=== PATIENT | female | born 1945 | race Caucasian/White ===

== ENCOUNTER → 2019-02-19 16:58 | Outpatient (CLI) | payer MEDICARE, BC ==
[2010-08-30 07:20] VITALS: BMI 45.6
== END | disposition home or self-care (01) ==
LOC: D.MAMMO 14:15
PROVIDERS: ATTEND Internal Medicine
DX: Z12.31 Encounter for screening mammogram for malignant neoplasm of breast (principal)

== ENCOUNTER 2019-09-30 12:29 | Day surgery (SDC) | payer MEDICARE, BC ==
[~2019-09-30] VITALS: Ht 162.6 cm; Wt 121.4 kg
[2019-09-30 13:13] LABS: HEMATOCRIT 44.3 % (36.0-48.0); HEMOGLOBIN 14.4 g/dL (12-16); MCH 29.4 pg (26.0-34.0); MCHC 32.5 g/dL (31.0-37.0); MCV 90.6 fL (80.0-100.0); MEAN PLATELET VOLUME 10.5 fL (7.4-10.4); RBC 4.89 10x6/uL (4.00-5.40); RDW 13.7 % (11.5-14.5); WBC 6.8 10x3/uL (4.8-10.8)
[2019-09-30 13:34] LABS: CALC OSMOLALITY 283 mosm/kg (275-300); CALCIUM 9.3 mg/dL (8.5-10.1); CARBON DIOXIDE 28.4 mmol/L (21.0-32.0); CHLORIDE - SERUM 104 mmol/L (98-107); CREATININE - SERUM 0.6 mg/dL (0.6-1.3); GLUCOSE 106 mg/dL (74-106); POTASSIUM - SERUM 4.1 mmol/L (3.5-5.1); SODIUM 143 mmol/L (136-145); UREA NITROGEN 11 mg/dL (7-18); eGFR NON AFRICAN AMERICAN > 90 mL/min (90-120)
[2019-09-30 13:42] LABS: APTT 30.9 SECONDS (22.8-39.4); INR 1.08 (0.85-1.17); PROTIME 13.5 SECONDS (11.6-15.0)
[2019-09-30] MEDS ORDERED: BISOPROLOL-HCT1 EACH PO (13:57)
[2019-09-30] MEDS ORDERED: FUROSEMIDE20 MG PO (13:57)
[2019-09-30] MEDS ORDERED: PLAVIX75 MG PO (13:58)
[2019-09-30] MEDS ORDERED: KLOR-CON 1010 MEQ PO (13:59)
[2019-09-30 14:07] VITALS: BP 119/65; Ht 162.6 cm; Wt 121.4 kg
--- NOTE | 2019-09-30 17:10 | NUR ---
PT DC INSTRUCTIONS REVIEWED AT THIS TIME, PT VERBALIZES UNDERSTANDING. PT IV REMOVED AT THIS TIME, INTACT, NO REDNESS OR SWELLING NOTED AT SITE.
--- NOTE | 2019-09-30 17:18 | NUR ---
PT LEFT UNIT VIA WC AT 1715
--- NOTE | 2019-10-01 07:49 | OP ---
PATIENT NAME: RAZ EHLTON MEDICAL RECORD: [id number] :49 LOCATION:D.OPS ADMISSION DATE: SURGEON: JANESSA LOCKETT DO DATE OF OPERATION: 09/30/2019 PROCEDURE: Colonoscopy with polypectomy. INDICATIONS FOR PROCEDURE: History of colon polyps, diverticulosis of colon and abnormal findings on CT scan, history of C. difficile, status post treatment in May of 2019. SCOPE: Olympus video pediatric colonoscope. MEDICATIONS: Propofol 650 mg IV per anesthesia. WITHDRAWAL TIME: 32 minutes. ESTIMATED BLOOD LOSS: Minimal. COMPLICATIONS: None immediate. FINDINGS: Informed consent was given. The patient was made comfortable with the above medication. After reaching an adequate level of sedation by slow IV push, the patient was placed on her left side. A digital rectal examination was performed and was normal. The endoscope was advanced under direct visualization through the rectum to the cecum, confirmed by the presence of the appendiceal orifice and ileocecal valve. The endoscope was slowly withdrawn. Mucosa was carefully examined. Prep quality was fair. There were 3 polyps visualized on today's examination. The first was a benign-appearing flat polyp consistent with a sessile serrated adenoma in the ascending colon. It measured approximately 9 mm in diameter. It was removed in a piecemeal fashion using a hot forceps after lifting with isotonic saline. The other 2 polyps were located in the sigmoid colon. They were benign-appearing sessile polyps, which ranged in size from 3-5 mm in diameter. They were both removed using a hot snare. There was evidence of moderate diverticulosis involving the entire colon. Retroflexion was performed in the rectum with visualization of grade I internal hemorrhoids without bleeding. The endoscope was withdrawn from the patient. The patient tolerated the procedure well and there were no immediate complications. IMPRESSION: 1. Three polyps as described above, removed using a combination of hot snare and hot forceps. Also, the polyp in the ascending colon was reinforced using an endoclip after the piecemeal polypectomy. 2. Moderate diverticulosis of the entire colon. 3. Grade I internal hemorrhoids without bleeding. PLAN AND RECOMMENDATIONS: 1. Discharge home when recovery parameters are met. 2. Follow up with biopsy specimen results. 3. High-fiber diet. 4. Continue current medications. OPERATIVE REPORT [id number] RAZ HELTON 5. Recall colonoscopy in 3 years. TRANSINT:[id number] Voice Confirmation ID: [id number] DOCUMENT ID: [id number] JANESSA LOCKETT DO at 0749 CC: [id number] DICTATION DATE: 09/30/19 162 CRIB TENDER: 09/30/191929 [facility] 09/30/19 [place] [id number] [place] [id number]
== END 2019-09-30 17:15 | disposition home or self-care (01) ==
LOC: D.OPS 12:29
PROVIDERS: Anesthesiology; ATTEND Internal Medicine Gastroenterology
DX: Z86.010 Personal history of colon polyps (principal); K57.30 Diverticulosis of large intestine without perforation or abscess without bleeding; R93.89 Abnormal findings on diagnostic imaging of other specified body structures

== ENCOUNTER 2020-11-20 15:45 | Outpatient (CLI) | payer MEDICARE, BC ==
[2019-09-30 14:07] VITALS: BMI 45.9
[~2020-11-20 15:45] MED LIST: BISOPROLOL-HCT1 EACH PO; FUROSEMIDE20 MG PO; KLOR-CON 1010 MEQ PO; PLAVIX75 MG PO
== END 2020-11-20 23:59 | disposition home or self-care (01) ==
LOC: D.MAMMO 15:45
PROVIDERS: ATTEND Internal Medicine
DX: Z12.31 Encounter for screening mammogram for malignant neoplasm of breast (principal)